=== PATIENT | female | born 1960 | race Caucasian/White ===

== ENCOUNTER 2016-04-27 12:29 | Emergency (ER) | payer MEDICAID ==
[~2016-04-27] VITALS: Ht 157.5 cm; Wt 64.4 kg
[~2016-04-27 12:29] MED LIST: COR3 PO; ECO81 PO; LIPI10 PO; ZES10 PO
[2016-04-27 15:27] LABS: CALCIUM 8.7 mg/dL (8.5-10.1); CARBON DIOXIDE 27.9 mmol/L (21-32); CHLORIDE SERUM 108 mmol/L (98-107); CREATININE SERUM 0.7 mg/dL (0.6-1.0); GFR1 > 60 mL/min; GLUCOSE SERUM 103 mg/dL (74-106); POTASSIUM SERUM 4.2 mmol/L (3.5-5.1); SODIUM SERUM 143 mmol/L (136-145)
[2016-04-27 15:31] LABS: ALBUMIN 3.5 g/dL (3.4-5.0); ALKALINE PHOSPHATASE 53 U/L (46-116); ALT/SGPT 33 U/L (14-59); AST/SGOT 14 U/L (15-37); BILIRUBIN TOTAL 0.3 mg/dL (0.20-1.00); TOTAL PROTEIN, SERUM 6.6 g/dL (6.4-8.2)
[2016-04-27 16:12] LABS: BASOPHIL % 0.6 % (0-2); PLATELET COUNT 293 x10^3mcL (130-400); RED CELL DISTRIBUTION WIDTH 12.6 % (11.5-14.5)
[2016-04-27 17:04] VITALS: BP 130/79
== END 2016-04-27 17:04 | disposition home or self-care (01) ==
LOC: ED 12:29
PROVIDERS: Emergency Medicine
DX: J40 Bronchitis, not specified as acute or chronic (principal); I10 Essential (primary) hypertension; E78.5 Hyperlipidemia, unspecified; D64.9 Anemia, unspecified
CPT/HCPCS: 83880

== ENCOUNTER 2017-11-12 15:19 | Emergency (ER) | payer MEDICAID ==
[2017-11-12 15:28] VITALS: Ht 165.1 cm
[2017-11-12 17:23] VITALS: BP 131/90
== END 2017-11-12 17:23 | disposition home or self-care (01) ==
LOC: ED 15:19
DX: N39.0 Urinary tract infection, site not specified (principal); I10 Essential (primary) hypertension; E78.00 Pure hypercholesterolemia, unspecified